=== PATIENT | male | born 1980 | race Caucasian/White ===

== ENCOUNTER 2023-01-25 13:52 | Emergency (ER) | payer OTHER ==
[~2023-01-25] VITALS: Ht 170.2 cm; Wt 104.3 kg
[2023-01-25 14:13] VITALS: BP_SYST 168; PULSE 101; RESP 20; TEMP 98.7; O2SAT 99
[2023-01-25 14:50] LABS: BASOPHILS % (AUTO) 0.5 % (0.0-2.0); EOSINOPHILS # (AUTO) 0.2 K/uL (0.0-0.4); EOSINOPHILS % (AUTO) 2.3 % (0.0-4.0); HEMATOCRIT 25.9 % (36-54); HEMOGLOBIN 8.4 g/dL (14.0-18.0); LYMPHOCYTES # (AUTO) 1.3 K/uL (1.0-5.5); LYMPHOCYTES % (AUTO) 13.6 % (20.5-51.5); MEAN CORPUSCULAR HEMOGLOBIN 29 pg (27-31); MEAN CORPUSCULAR HGB CONC 32 % (32-36); MEAN CORPUSCULAR VOLUME 89 fL (79.0-98.0); MONOCYTES # (AUTO) 0.6 K/uL (0.0-1.0); MONOCYTES % (AUTO) 6.5 % (1.7-9.3); NEUTROPHILS # (AUTO) 7.5 K/uL (1.8-7.7); NEUTROPHILS % (AUTO) 77.1 % (40.0-70.0); PLATELET COUNT (AUTO) 254 K/uL (130-430); RED BLOOD CELL COUNT(AUTO) 2.91 MIL/uL (4.2-6.2); RED CELL DISTRIBUTION WIDTH 15.1 % (9.0-15.0); WHITE BLOOD COUNT (AUTO) 9.8 K/uL (4.8-10.8)
[2023-01-25 14:57] LABS: CALCIUM 9.2 mg/dL (8.4-11.0); CREATININE 1.65 mg/dL (0.55-1.30); POTASSIUM 4.4 mmol/L (3.5-5.1)
[2023-01-25 14:59] LABS: INR 1.1 (0.80-1.20)
[2023-01-25 15:11] LABS: ALBUMIN 2.4 g/dL (3.4-4.8); BILIRUBIN,DIRECT 0.1 mg/dL (0.0-0.3); TOTAL BILIRUBIN 0.4 mg/dL (0.0-1.0); TOTAL PROTEIN, SERUM 6.7 g/dL (6.4-8.3)
[2023-01-25] MEDS ORDERED: CLIN-142 PO (16:10)
[2023-01-25 17:04] VITALS: BP_SYST 142; PULSE 89; RESP 18; TEMP 98.7; O2SAT 100
== END 2023-01-25 17:04 | disposition home or self-care (01) ==
LOC: SED 13:52
DX: E11.621 Type 2 diabetes mellitus with foot ulcer (principal); M86.9 Osteomyelitis, unspecified; Z79.899 Other long term (current) drug therapy
CPT/HCPCS: 36415; 80048; 80076; 83605; 83880; 85025; 85610-TC; 85730-TC; 99284